=== PATIENT | female | born 1975 | race Caucasian/White ===

== ENCOUNTER → 2016-11-06 | Outpatient (CLI) | payer BC ==
[~2016-11-06] MED LIST: COLACE 100100 MG/CAP PO; COLACE50 MG PO; IBU600 MG PO; MYLICON 8080 MG/TAB.; PERCOCET 325 MG1 TA2 PO; PRENATAL VITAMI1 TA5 PO; SIMETHICONE80 MG PO; TYLENOL 325MG325 MG PO
== END ==
LOC: MC.RAD 10:39
DX: Z12.31 Encounter for screening mammogram for malignant neoplasm of breast (principal); R92.8 Other abnormal and inconclusive findings on diagnostic imaging of breast

== ENCOUNTER → 2016-11-09 | Outpatient (CLI) | payer BC | LOC: MC.RAD 09:00 | DX: R92.8 Other abnormal and inconclusive findings on diagnostic imaging of breast (principal) ==

== ENCOUNTER → 2017-11-10 | Outpatient (CLI) | payer BC | LOC: MC.RAD 14:11 | DX: Z12.31 Encounter for screening mammogram for malignant neoplasm of breast (principal) ==

== ENCOUNTER → 2018-01-28 | Outpatient (CLI) | payer BC | LOC: COL.RAD 12:08 | DX: M51.37 Other intervertebral disc degeneration, lumbosacral region (principal) ==

== ENCOUNTER 2018-04-04 08:45 | Outpatient (RCR) | payer BC | END 2018-04-06 16:19 | disposition home or self-care (01) | LOC: WSPT 08:45 | DX: M51.36 Other intervertebral disc degeneration, lumbar region (principal); M47.9 Spondylosis, unspecified ==

== ENCOUNTER → 2018-12-23 | Outpatient (CLI) | payer BC | LOC: MC.RAD 14:21 | DX: Z12.31 Encounter for screening mammogram for malignant neoplasm of breast (principal) ==

== ENCOUNTER → 2020-01-26 | Outpatient (CLI) | payer BC | LOC: MC.RAD 12-29 14:00 | DX: Z12.31 Encounter for screening mammogram for malignant neoplasm of breast (principal) ==

== ENCOUNTER → 2021-01-31 | Outpatient (CLI) | payer BC | LOC: MC.RAD 08:16 | DX: Z12.31 Encounter for screening mammogram for malignant neoplasm of breast (principal) ==

== ENCOUNTER → 2022-02-13 | Outpatient (CLI) | payer BC | LOC: MC.RAD 08:16 | DX: Z12.31 Encounter for screening mammogram for malignant neoplasm of breast (principal) ==

== ENCOUNTER 2024-01-21 08:00 | Emergency (ER) | payer BC ==
[~2024-01-21] VITALS: Ht 175.3 cm; Wt 68.2 kg
[2024-01-21 08:02] VITALS: TEMP 97.9
[2024-01-21] MEDS ORDERED: diphenhydrAMINE 50 MG/ML 1 ML VIAL IV ONE (08:30)
[2024-01-21] MEDS ORDERED: dexAMETHasone 10 MG/ML VIAL IV ONE (08:30)
[2024-01-21] MEDS ORDERED: NS 1,000 ML IV ONE (09:15)
[2024-01-21] MEDS ORDERED: Ketorolac 15 MG/ML VIAL IV ONE (09:15)
[2024-01-21 10:58] VITALS: BP 147/99; PULSE 88
== END 2024-01-21 11:00 | disposition home or self-care (01) ==
LOC: COL.ER 08:00
DX: R51.9 Headache, unspecified (principal); Z86.69 Personal history of other diseases of the nervous system and sense organs
CPT/HCPCS: J0780; J1100; J1200; J1885; J2765; J7030

== ENCOUNTER → 2024-04-17 | Outpatient (CLI) | payer BC | LOC: MC.RAD 07:54 | DX: Z12.31 Encounter for screening mammogram for malignant neoplasm of breast (principal) ==